=== PATIENT | male | born 1980 | race Caucasian/White ===

== ENCOUNTER 2017-07-04 09:01 | Day surgery (SDC) | payer MEDICAID ==
[~2017-07-04] VITALS: Ht 185.4 cm; Wt 93.2 kg
--- NOTE | ~2017-07-04 | HP ---
PATIENT: ELAN BEGUM MEDICAL RECORD: [id number] ACCOUNT: [id number] LOCATION:[facility] A : 78 ADMISSION DATE: 07/04/17 HISTORY AND PHYSICAL EXAMINATION CHIEF COMPLAINT: Pain. HISTORY: The patient began having a burning abdominal pain last night. It is located in the right lower quadrant. He describes it as severe. He has had nausea without vomiting. He underwent a CT scan. I personally reviewed the CT images. I personally reviewed the CT report. It is consistent with acute appendicitis. I am going to plan for laparoscopic appendectomy, possible open procedure. The risks, possible complications, and alternatives to the procedure were explained to the patient. He elects to proceed. Palpation aggravates. Nothing alleviates. He does have localized peritonitis to percussion. REVIEW OF SYSTEMS: No night sweats. No weight loss. No anorexia. No hemoptysis. No fever. No black or tarry stools. No change in bowel habits. No heart disease. No high blood pressure. No fainting or seizures. No rheumatic fever. No diabetes. No thyroid problems. No respiratory disease. No shortness of breath. PAST MEDICAL AND SURGICAL HISTORY: He has had fall with ligament strain, left ankle problems, left knee problems, wisdom teeth extraction. ALLERGIES: No known drug allergies. HOME MEDICINES: None. SOCIAL HISTORY: He does smoke. PHYSICAL EXAMINATION: GENERAL: The patient does not appear acutely ill. He does not appear chronically ill. VITAL SIGNS: Reviewed. EARS: External ears appear normal. EYES: Extraocular movements are intact. NECK: Trachea is midline. CHEST: No intercostal retractions. PULMONARY: Nonlabored. No stridor. ABDOMEN: Right lower quadrant tenderness with guarding. EXTREMITIES: No peripheral cyanosis. INTEGUMENT: No rash. No ulcerations. PSYCHIATRIC: Normal affect. NEUROLOGIC: Nonfocal. No lethargy. The patient answers questions appropriately and moves all extremities well. BACK: No thoracic kyphosis. IMPRESSION: Acute appendicitis. PLAN: Laparoscopic appendectomy as described above. TRANSINT:[id number] Voice Confirmation ID: [id number] DOCUMENT ID: [id number] HISTORY AND PHYSICAL [id number] ELAN BEGUM MAURA FLORES, RYAN PEÑA at 0938 CC: [id number] DICTATION DATE: 07/04/17 1602 STENCILER: 07/04/17 1650 [facility] 07/05/17 [facility] [address] [place] [address]
--- NOTE | ~2017-07-04 | OP ---
PATIENT NAME: ELAN BEGUM MEDICAL RECORD: [id number] :78 LOCATION:D[facility] ADMISSION DATE: SURGEON: ROBERT FLORES MD DATE OF OPERATION: 07/04/2017 PREOPERATIVE DIAGNOSIS: Appendicitis with localized peritonitis. POSTOPERATIVE DIAGNOSIS: Appendicitis with localized peritonitis without rupture, abscess, or gangrene. PROCEDURE: Laparoscopic appendectomy. SURGEON: Robert Flores MD UKE DRIVER: None. BLOOD LOSS: Minimal. ANESTHESIA: General. COMPLICATIONS: None. The risks, possible complications and alternatives to the procedure were explained to the patient. He elects to proceed. OPERATIVE COURSE: The patient was conveyed to the operating room electively on 07/04/2017. General anesthesia was induced by the anesthesia staff. The abdomen was sterilely prepped and draped. An incision was accomplished within the umbilicus. There was a small umbilical hernia. I sharply cleaned the surrounding connective tissue of the underlying fascia. Stay sutures of 0 Vicryl were placed on either side of the umbilical hernia defect. I entered the peritoneal cavity through the umbilical hernia defect with a 12-mm trocar. Two more trocars were inserted. One was inserted in the left side of the abdomen. One was inserted in the right lower quadrant. These were 5-mm trocars. Abdominal survey was undertaken. The appendix was grasped. A window was created in the mesoappendix. I then took down the mesoappendix with the EnSeal device. I then stapled across the tip of the cecum with an Endo-MICHAEL type stapler utilizing a blue load. The appendix was placed within an Endobag retrieval device and was withdrawn through the umbilical fascia defect. The 12-mm trocars placed in the abdomen were reinsufflated. There was no bleeding even on low pressure of 8. All the trocars were removed and the abdomen desufflated. The umbilical fascia was closed with horizontal mattress 0 Vicryl sutures. The umbilical skin was closed with interrupted 4-0 Vicryl Rapide sutures. The other 2 trocar sites were closed with intracuticular 3-0 Vicryls. Benzoin and Steri-Strips were applied. The patient was then extubated and conveyed to post-anesthesia care unit where he was in stable condition. TRANSINT:[id number] Voice Confirmation ID: [id number] DOCUMENT ID: [id number] OPERATIVE REPORT [id number] ELAN BEGUM ROBERT MD at 1454 CC: [id number] DICTATION DATE: 07/19/17 1025 [facility] MOLDER: 07/19/17 1315 [facility] [place] 07/05/17 [id number] [place] [address]
[2017-07-04 09:33] LABS: ANION GAP 13.5 mmol/L (8-16); BASOPHILS 0.2 % (0-2); BILIRUBIN - TOTAL 0.7 mg/dL (0.2-1.3); CALCIUM 9.6 mg/dL (8.5-10.1); CARBON DIOXIDE 25.2 mmol/L (21.0-32.0); CREATININE - SERUM 1.2 mg/dL (0.6-1.3); EOSINOPHILS 0.4 % (0-7); HEMATOCRIT 46.4 % (42.0-54.0); HEMOGLOBIN 16.3 g/dL (13.5-17.5); IMMATURE GRANULOCYTES 0.2 % (0-5); LYMPHOCYTES 24.9 % (15-50); MCH 33.8 pg (26.0-34.0); MCHC 35.1 g/dL (31.0-37.0); MCV 96.3 fL (80.0-100.0); MEAN PLATELET VOLUME 11.2 fL (7.4-10.4); MONOCYTES 8.2 % (2-11); NEUTROPHILS 66.1 % (40-80); PLATELET COUNT 184 10x3/uL (130-400); POTASSIUM - SERUM 3.7 mmol/L (3.5-5.1); PROTEIN - SERUM 7.3 g/dL (6.4-8.2); RBC 4.82 10x6/uL (4.20-6.10); RDW 12.9 % (11.5-14.5)
[2017-07-04 12:18] LABS: APPEARANCE CLEAR (CLEAR); BILIRUBIN NEGATIVE (NEGATIVE); COLOR YELLOW (YELLOW); GLUCOSE NEGATIVE (NEGATIVE); KETONE NEGATIVE (NEGATIVE); NITRITE NEGATIVE (NEGATIVE); PROTEIN NEGATIVE (NEGATIVE); SPECIFIC GRAVITY 1.005 (1.005-1.020); UROBILINOGEN NORMAL (NORMAL)
[2017-07-04 16:36] VITALS: BP 155/91
[2017-07-04 20:24] VITALS: BP 129/88
[2017-07-04 21:45] VITALS: BP 129/88; Ht 185.4 cm; Wt 93.2 kg
[2017-07-04 23:39] VITALS: BP 126/82
[2017-07-05 04:33] VITALS: BP 125/67
[2017-07-05 07:54] VITALS: BP 120/88
[2017-07-05 11:38] VITALS: BP 120/81
[2017-07-05 15:55] VITALS: BP 141/100
== END 2017-07-05 18:32 | disposition home or self-care (01) ==
LOC: D.MS 09:01 → D.ER 09:01 → D.OPS 09:01 → D.ER 09:01 → EDSTATUS 12:51 → D.MS 13:10 → D.OPS 07-05 18:32
PROVIDERS: Family Medicine
DX: K37 Unspecified appendicitis (principal); F17.200 Nicotine dependence, unspecified, uncomplicated; R10.84 Generalized abdominal pain; R11.2 Nausea with vomiting, unspecified; Z01.812 Encounter for preprocedural laboratory examination

== ENCOUNTER 2018-10-22 10:26 | Emergency (ER) | payer MEDICAID ==
[2018-10-22 10:29] VITALS: BMI 26.4
[2018-10-22] MEDS ORDERED: ZOLOFT50 MG PO (10:30)
[2018-10-22 11:02] LABS: BASOPHILS 0.2 % (0-2); EOSINOPHILS 0.4 % (0-7); HEMATOCRIT 47.3 % (42.0-54.0); HEMOGLOBIN 16.9 g/dL (13.5-17.5); IMMATURE GRANULOCYTES 0.2 % (0-5); LYMPHOCYTES 33.1 % (15-50); MCH 34.3 pg (26.0-34.0); MCHC 35.7 g/dL (31.0-37.0); MCV 95.9 fL (80.0-100.0); MEAN PLATELET VOLUME 11.3 fL (7.4-10.4); MONOCYTES 10.9 % (2-11); NEUTROPHILS 55.2 % (40-80); PLATELET COUNT 188 10x3/uL (130-400); RBC 4.93 10x6/uL (4.20-6.10); RDW 13.3 % (11.5-14.5); WBC 8.9 10x3/uL (4.8-10.8)
[2018-10-22 11:13] LABS: ALKALINE PHOSPHATASE 71 U/L (46-116); ALT (SGPT) 41 U/L (10-68); BILIRUBIN - TOTAL 1.03 mg/dL (0.2-1.3); CALC OSMOLALITY 278 mosm/kg (275-300); CALCIUM 9.4 mg/dL (8.5-10.1); CARBON DIOXIDE 24.8 mmol/L (21.0-32.0); CHLORIDE - SERUM 104 mmol/L (98-107); CREATININE - SERUM 1.1 mg/dL (0.6-1.3); GLUCOSE 104 mg/dL (74-106); POTASSIUM - SERUM 3.7 mmol/L (3.5-5.1); PROTEIN - SERUM 7.7 g/dL (6.4-8.2); SODIUM 140 mmol/L (136-145); UREA NITROGEN 12 mg/dL (7-18); eGFR NON AFRICAN AMERICAN 79 mL/min (90-120)
[2018-10-22 11:16] LABS: APTT 26.8 SECONDS (22.8-39.4); INR 0.96 (0.85-1.17); PROTIME 12.3 SECONDS (11.6-15.0)
[2018-10-22 11:23] LABS: CKMB 0.9 U/L (0.0-3.6); CREATINE KINASE 107 UL (21-232); MAGNESIUM - SERUM 2.4 mg/dL (1.8-2.4); TROPONIN-I < 0.017 ng/mL (0.000-0.060)
[2018-10-22] MEDS ORDERED: ATIVAN1 MG PO (12:22)
[2018-10-22 12:43] VITALS: BP 138/89
== END 2018-10-22 12:44 | disposition home or self-care (01) ==
LOC: D.ER 10:26
PROVIDERS: Emergency Medicine
DX: R07.9 Chest pain, unspecified (principal); R42 Dizziness and giddiness

== ENCOUNTER 2020-01-05 15:03 | Emergency (ER) | payer MEDICAID ==
[~2020-01-05 15:03] MED LIST: ATIVAN1 MG PO; ZOLOFT50 MG PO
[2020-01-05 15:10] VITALS: Ht 185.4 cm
[2020-01-05] MEDS ORDERED: VOLTAREN75 MG PO (16:38)
[2020-01-05 16:52] VITALS: BP 148/86
== END 2020-01-05 16:53 | disposition home or self-care (01) ==
LOC: D.ER 15:03
DX: S69.91XA Unspecified injury of right wrist, hand and finger(s), initial encounter (principal); M25.561 Pain in right knee; I10 Essential (primary) hypertension; W19.XXXA Unspecified fall, initial encounter; Y93.9 Activity, unspecified; Y92.9 Unspecified place or not applicable